=== PATIENT | female | born 2000 | race Caucasian/White ===

== ENCOUNTER 2021-07-13 15:00 | Emergency (ER) | payer SELFPAY ==
[2021-07-13] VITALS (13 sets, daily range): BP systolic 108–140; BP diastolic 86–100; PULSE 82–106; RESP 16–29; TEMP 36.6–36.9; O2SAT 95–98
--- NOTE | ~2021-07-13 | XR_ITS ---
XR chest 2V DATE: 07/13/2021 17:30 INDICATION: Chest pain and tightness for a few weeks. History of anxiety. TECHNIQUE: PA and lateral views COMPARISON: None FINDINGS: Normal heart size. No hilar or mediastinal enlargement. No pulmonary infiltrate or consolid ation, pleural effusion or pulmonary vascular congestion or pneumothorax. Included skeletal structures are unremarkable. IMPRESSION: Negative chest Reviewed, dictated and finalized at location A. IMPRESSION: Negative chest
[2021-07-13 15:32] LABS: Basophils Absolute Auto 0.1 K/mm3 (0.0-0.1); Basophils Percent Auto 0.6 % (0.2-1.2); Eosinophils Percent Auto 0.3 % (0-4.4); Hematocrit 45.9 % (37.0-47.0); Hemoglobin 14.7 g/dL (12.0-15.0); Immature Granulocyte Absolute 0.15 K/mm3 (0.00-0.031); Immature Granulocyte Percent A 1.1 % (0-0.5); Lymphocytes Absolute Auto 1.27 K/mm3 (0.9-3.2); Lymphocytes Percent Auto 9.2 % (18.3-44.2); Mean Corpuscular Hemoglobin 27.3 pg (26-34); Mean Corpuscular Volume 85.2 fl (80-100); Mean Platelet Volume 8.8 fl (7.4-10.4); Monocytes Absolute Auto 0.7 K/mm3 (0.1-0.6); Monocytes Percent Auto 5.1 % (2.6-8.5); Neutrophils Absolute Auto 11.6 K/mm3 (1.3-6.7); Neutrophils Percent Auto 83.7 % (45.5-73.1); Platelet Count Result 456 k/mm3 (150-375); Red Blood Count 5.39 M/mm3 (4.2-5.4); White Blood Count 13.8 K/mm3 (4.5-10.0)
--- NOTE | 2021-07-13 15:32 | ECG_ITS ---
Measurements Intervals [place] Rate: 94 P: 42 [place]: 138 QRS: -4 QRSD: 81 T: 35 QT: 328 QTc: 412 Interpretive Statements SINUS RHYTHM VOLTAGE CRITERIA FOR LVH BORDERLINE ECG Electronically Signed On 07-14-2021 8:13:53 CDT by Yousif Calvin D.O.
--- NOTE | 2021-07-13 15:33 | ED.ANXIETY ---
HPI - Anxiety General Chief Complaint: Anxiety Stated Complaint: anxious, recent loss Time Seen by Provider: 07/13/21 15:18 Source: patient and RN notes reviewed Mode of arrival: ambulatory Limitations: no limitations History of Present Illness HPI narrative: This is a 20 year old female who presents for evaluation of anxiety. Patient states her child a few weeks ago so she is having a hard time dealing with it. She reports constant chest pain for 2 weeks. She has made an appointment with lisha on July. She reports today she had a severe panic attack. She states she was sitting around thinking about every thing when her chest went crazy . She reports she was shaking all over. She denies fever chills, shortness of breath, nausea, vomiting. She denies leg swelling or calf pain. She was on medication for anxiety 6 months ago but she stopped because she felt like it was not working. She denies suicidal thoughts or ideations. She denies homicidal thoughts. Related Data Allergies Allergy/AdvReac Type Severity Reaction Status Date / Time No Known Allergies Allergy Verified 07/13/21 16:10 Review of Systems Review of Systems: All systems reviewed & are unremarkable except as noted in HPI and below PMFSH Past Medical History Medical History (Updated 07/13/21 @ 17:49 by Katerin Barbosa MD) Anxiety Social History Social History (Updated 07/13/21 @ 17:25 by Katerin Barbosa MD) Smoking packs per day: 1 Smoking cigarettes per day: 20.0 Smoking status: Current every day smoker Substance use type: marijuana Exam Const: General: no acute distress and alert Orientation/consciousness: patient oriented x3 HENMT: Head: normocephalic and atraumatic Face and sinus: face symmetric Eyes: EOM: EOMs intact bilaterally Chest: Chest palpation & inspection: tenderness Resp: Effort & Inspection: normal respiratory effort and no retractions Auscultation: clear to auscultation bilaterally Cardio: Rate: regular rate Rhythm: regular rhythm Heart sounds: no murmurs GI: GI Palp: Yes Soft to palpation, No Tenderness to palpation present (GI) and No Guarding due to palpation present (GI) Auscultation: normal bowel sounds : General: Yes no CVA tenderness Skin: General skin exam: normal color Rashes: no rashes Neuro: General: patient oriented x3, moves all extremities and CN's II-XI intact bilaterally Psych: Mental Status: mental status grossly normal Affect: normal affect Course Reevaluation(s) Reevaluation #1: I discussed with patient no acute findings except mildly elevated wbc. Date: 07/13/21 Time: 17:30 Vital Signs Vital signs: Vital Signs Temperature 98.5 F 07/13/21 15:05 Pulse Rate 106 H 07/13/21 15:05 Respiratory Rate 16 07/13/21 15:05 Blood Pressure 140/100 H 07/13/21 15:05 Pulse Oximetry 97 07/13/21 15:05 Temperature 98.5 F 07/13/21 15:05 Pulse Rate 86 07/13/21 18:00 Respiratory Rate 21 H 07/13/21 18:00 Blood Pressure 123/92 H 07/13/21 16:57 Pulse Oximetry 96 07/13/21 18:00 MDM - Anxiety Lab Data Attestation: I reviewed the patient's lab results. Result diagrams: 07/13/21 15:22 07/13/21 15:22 Labs: Lab Results 07/13/21 07/13/21 07/13/21 Range/Units 15:22 15:22 15:22 WBC 13.8 H (4.5-10.0) K/mm3 RBC 5.39 (4.2-5.4) M/mm3 Hgb 14.7 (12.0-15.0) g/dL Hct 45.9 (37.0-47.0) % MCV 85.2 (80-100) fl MCH 27.3 (26-34) pg MCHC 32.0 (32-36) g/dl RDW 14.0 (11.5-14.5) % Plt Count 456 H (150-375) k/mm3 MPV 8.8 (7.4-10.4) fl Immature Gran % (Auto) 1.1 H (0-0.5) % Neut % (Auto) 83.7 H (45.5-73.1) % Lymph % (Auto) 9.2 L (18.3-44.2) % Dixon % (Auto) 5.1 (2.6-8.5) % Eos % (Auto) 0.3 (0-4.4) % Baso % (Auto) 0.6 (0.2-1.2) % Lymph # (Auto) 1.27 (0.9-3.2) K/mm3 Dixon # (Auto) 0.7 H (0.1-0.6) K/mm3 Eos # (Auto) 0.0 (0-0.3) K/
[2021-07-13 15:45] LABS: Alanine Aminotransferase 50 U/L (4-35); Alkaline Phosphatase 127 U/L (38-126); Anion Gap 12 mmol/L (8-16); Aspartate Amino Transferase 39 U/L (14-36); Bilirubin,Total 0.3 mg/dL (0.2-1.3); Blood Urea Nitrogen 12 mg/dL (7-17); Calcium 10.2 mg/dL (8.4-10.2); Carbon Dioxide 22 mmol/L (22-30); Chloride 103 mmol/L (98-107); Estimated CRCL calculation 129 ml/min; Estimated Glomerular Filt Rate > 60; Glucose 124 mg/dL (65-110); Potassium 4.1 mmol/L (3.4-5.0); Sodium 137 mmol/L (137-145)
[2021-07-13 15:48] LABS: Ethanol < 10 mg/dL (<10)
[2021-07-13] MEDS: LORazepam (*CRX) 0.5 MG TABLET PO (15:49)
--- NOTE | 2021-07-13 15:53 | PC.NURSE ---
Called lab requesting lab add on for D-dimer, TSH, and baseline troponin.
[2021-07-13 16:17] LABS: Amphetamine Screen Urine Negative (Negative); Barbiturate Screen Urine Negative (Negative); Benzodiazepines Screen Urine Negative (Negative); Cannabinoid Screen Urine Positive (Negative); Cocaine Screen Urine Negative (Negative); Methadone Screen Urine Negative (Negative); Opiate Screen Urine Negative (Negative); Phencyclidine Screen Urine Negative (Negative)
[2021-07-13 16:26] LABS: Troponin I < 0.012 ng/mL (0.000-0.034)
[2021-07-13 16:43] LABS: Add Urine Microscopic? YES; Amorphous Sediment Urine Moderate; Appearance Urine Turbid (Clear); Bilirubin Urine Negative (Negative); Blood Urine 2+ (Negative); Color Urine Yellow (Yellow); Glucose Urine UA Negative (Negative); Ketones Urine Negative (Negative); Leukocyte Esterase Ur 1+ LEU/UL (Negative); Mucus Urine Moderate /lpf; Nitrate Urine Negative (Negative); Protein Urine 1+ mg/dL (Negative); RBC Urine 0-2 /hpf (0-2); Squamous Epithelial Cell Urine Occasional /hpf (Few); Urobilinogen Urine Negative mg/dL (<2.0)
[2021-07-13 17:02] LABS: D Dimer 0.17 ug/mL (<0.48)
[2021-07-13] MEDS: IBUPROFEN 400 MG TABLET 800 MG PO (18:03)
== END 2021-07-13 18:22 | disposition home or self-care (01) ==
PROVIDERS: Emergency Medicine; Emergency Provider General Practice
DX: F41.9 Anxiety disorder, unspecified (principal); D72.829 Elevated white blood cell count, unspecified; F17.210 Nicotine dependence, cigarettes, uncomplicated; R94.31 Abnormal electrocardiogram [ECG] [EKG]
CPT/HCPCS: 36415; 71046; 80053; 80307; 81001; 81025; 84443; 84484; 85025; 85380; 93005; 99284; A9270

== ENCOUNTER 2021-10-07 12:37 | Emergency (ER) | payer OTHER, SELFPAY ==
--- NOTE | 2021-10-07 12:41 | ED.HA ---
HPI - Headache General Chief Complaint: Skin/Abscess/Foreign Body Stated Complaint: Head aches Time Seen by Provider: 10/07/21 12:41 Source: patient and RN notes reviewed History of Present Illness HPI Narrative: Patient is a 21-year-old female who presents the urgent care with complaints of an extremely itchy scalp and recurrent hives to the scalp. Patient states that she is not recently made any changes to detergents, creams, lotions or shampoos. Patient states that she changes her shampoos frequently but nothing that she has not used in the past. Patient does report to taking trazodone as a new medication approximately 1 month ago. Patient states the symptoms started 2 to 3 weeks ago. Patient states that she cannot go without her trazodone due to her increased and anxiety and stress and the inability to sleep. Patient states that she has had multiple people check her scalp and they have not seen anything other than redness and hives . Patient states that her hair typically falls out when she is stressed but this seems to be more hair loss . No other acute complaints. Patient appears anxious but otherwise no acute distress noted. Patient aware of the plan of care. Some parts of this dictation were generated by voice recognition software and may contain typographical and/or grammatical inaccuracies. Related Data Home Medications Medication Instructions Recorded Confirmed alprazolam 0.25 mg PO DAILY 10/07/21 10/07/21 trazodone 100 mg PO HS 10/07/21 10/07/21 Allergies Allergy/AdvReac Type Severity Reaction Status Date / Time No Known Allergies Allergy Verified 10/07/21 13:08 Review of Systems Review of Systems: CONSTITUTIONAL: Denies fever, chills, or sweats. EYES: Denies visual changes, redness, or discharge. ENT: Denies rhinorrhea, congestion, sore throat, or otalgia. CARDIOVASCULAR: Denies chest pain, palpitations, or edema. RESPIRATORY: Denies cough or dyspnea. GASTROINTESTINAL: Denies abdominal pain, nausea, vomiting, or diarrhea. GENITOURINARY: Denies dysuria or hematuria. SKIN: Reports of itchy red scalp MUSCULOSKELETAL: Denies back pain, joint pain, or myalgia. NEUROLOGIC: Denies headache, numbness, or weakness. All other systems reviewed are negative, except as documented in HPI. [facility] Past Medical History Medical History (Updated 10/07/21 @ 13:12 by NEHA Johnson) Anxiety Social History Social History (Updated 07/13/21 @ 17:25 by Katerin Barbosa MD) Smoking packs per day: 1 Smoking cigarettes per day: 20.0 Smoking status: Current every day smoker Substance use type: marijuana Comments At the time of my signature, I reviewed and agree with the nursing past medical, surgical, social, and family history. There is no relevant family history pertinent to the patient complaint. Exam Narrative: GENERAL: This is a well-nourished, well-developed patient, in no apparent distress. HEAD: normocephalic, atraumatic. EYES: PERRL. Sclera clear/white. Vision is grossly intact. EARS: External ears normal NOSE: External nose normal with no obvious nasal discharge, nares without redness, no rhinorrhea. THROAT: Mucous membranes moist NECK: Neck supple CARDIOVASCULAR: Regular rate and rhythm without murmurs, gallops, or rubs. RESPIRATORY: Clear to auscultation. Breath sounds equal bilaterally. No wheezes, rales, or rhonchi. SKIN: No notable nits/lice seen in the scalp. No urticaria noted to the scalp. No evidence of fungal infection to the scalp. Very mild erythema to the top of the scalp. Notable thinning hairline to the center of the scalp. NEURO: awake, alert, and oriented to person, place and time. There were no obvious focal neurologic abnormalities. EXTREMITIES: No clubbing, cyanosis, or edema. Course Vital Signs Vital signs: Vital Signs Temperature 99.9 F H 10/07/21 12:44 Pulse Rate 85 10/07/21 12:44 Respiratory Rate 20 10/07/21 12:44 Blood Pressure 151/65 H
[2021-10-07 12:44] VITALS: BP 151/65; PULSE 85; RESP 20; TEMP 37.7; O2SAT 99
== END 2021-10-07 13:15 | disposition home or self-care (01) ==
PROVIDERS: Emergency Provider Nurse Practitioner Family
DX: L65.9 Nonscarring hair loss, unspecified (principal); F17.210 Nicotine dependence, cigarettes, uncomplicated; F41.9 Anxiety disorder, unspecified
CPT/HCPCS: 99211; G0463

== ENCOUNTER 2023-06-07 21:43 | Emergency (ER) | payer OTHER, SELFPAY ==
--- NOTE | ~2023-06-07 | CT_ITS ---
EXAMINATION: CT abdomen pelvis w con DATE: 06/08/2023 00:56 INDICATION: Lower abdominal pain, nausea, vomiting. TECHNIQUE: Computed tomography (CT) of the abdomen and pelvis was performed with 100 cc Omnipaque 350 intravenous contrast. The dose-length product was 1070.19 mGy-cm. Automated exposure control and ite rative reconstruction technique were employed. COMPARISON: None. FINDINGS: Lung bases are unremarkable. Heart size normal. No significant pleural or pericardial effus ion. There are appendicoliths. No secondary findings to suggest acute appendicitis. Follicular change s in the ovaries. IUD present in the uterus. Small fat-containing umbilical hernia. The liver, spleen, pancreas, adrenal glands and kidneys are unremarkable. Nonobstructive bowel gas pa ttern. There are a few segments of mildly thickened small bowel which may be due to normal contractil ity, although nonspecific enteritis not excluded. No free air. No abnormal pelvic masses or fluid col lections. No lymphadenopathy. Gallbladder is present. IMPRESSION: 1. Mild segmental thickening of small bowel loops in the upper abdomen which may be due to normal con tractility or nonspecific enteritis. Reviewed, dictated and finalized at location A. IMPRESSION: 1. Mild segmental thickening of small bowel loops in the upper abdomen which ma y be due to normal contractility or nonspecific enteritis.
--- NOTE | ~2023-06-07 | XR_ITS ---
EXAMINATION: XR chest 2V 06/08/2023 01:06 INDICATION: Cough and congestion PROCEDURE: 2 view chest COMPARISON: 07/13/2021 FINDINGS: The lungs are clear. The cardiomediastinal silhouette is within normal limits. There are no pleural effusions. There is no pneumothorax suspected. IMPRESSION: 1: NO ACUTE CARDIOPULMONARY DISEASE. Reviewed, dictated and finalized at location A.
[2023-06-07 21:46] VITALS: BP 160/102; PULSE 95; RESP 16; TEMP 36.5; O2SAT 100
[2023-06-07 23:31] LABS: Basophils Absolute Auto 0.1 K/mm3 (0.0-0.1); Basophils Percent Auto 0.6 % (0.2-1.2); Eosinophils Absolute Auto 0.3 K/mm3 (0-0.3); Hematocrit 42.4 % (37.0-47.0); Hemoglobin 13.6 g/dL (12.0-15.0); Immature Granulocyte Percent A 0.8 % (0-0.5); Lymphocytes Absolute Auto 3.34 K/mm3 (0.9-3.2); Lymphocytes Percent Auto 26.4 % (18.3-44.2); Mean Corpuscular HGB Conc 32.1 g/dl (32-36); Mean Corpuscular Hemoglobin 28.4 pg (26-34); Mean Corpuscular Volume 88.5 fl (80-100); Mean Platelet Volume 8.7 fl (7.4-10.4); Monocytes Absolute Auto 1.1 K/mm3 (0.1-0.6); Monocytes Percent Auto 8.6 % (2.6-8.5); Neutrophils Absolute Auto 7.8 K/mm3 (1.3-6.7); Neutrophils Percent Auto 61.6 % (45.5-73.1); Platelet Count Result 351 k/mm3 (150-375); Red Blood Count 4.79 M/mm3 (4.2-5.4); Red Cell Distribution Width 13.2 % (11.5-14.5); White Blood Count 12.7 K/mm3 (4.5-10.0)
[2023-06-07 23:57] LABS: Alanine Aminotransferase 43 U/L (6-35); Albumin Level 4.3 g/dL (3.5-5.1); Alkaline Phosphatase 111 U/L (38-126); Anion Gap 6 mmol/L (8-16); Aspartate Amino Transferase 33 U/L (14-36); Bilirubin,Total 0.2 mg/dL (0.2-1.3); Blood Urea Nitrogen 12 mg/dL (7-17); Calcium 9.3 mg/dL (8.4-10.2); Carbon Dioxide 28 mmol/L (22-30); Chloride 105 mmol/L (98-107); Estimated CRCL calculation 160 ml/min; Estimated Glomerular Filt Rate > 60; Glucose 89 mg/dL (65-110); Lipase 106 U/L (23-300); Potassium 3.8 mmol/L (3.4-5.0); Sodium 139 mmol/L (137-145)
[2023-06-08 00:13] LABS: Influenza A QL RT-PCR Negative (Negative); Influenza B QL RT-PCR Negative (Negative); SARS-CoV-2 RNA PCR Negative (Negative)
[2023-06-08 00:36] LABS: Appearance Urine Clear (Clear); Bacteria Urine None Seen /hpf; Bilirubin Urine Negative (Negative); Blood Urine Negative (Negative); Color Urine Yellow (Yellow); Glucose Urine UA Negative (Negative); Ketones Urine Negative (Negative); Leukocyte Esterase Ur 1+ LEU/UL (Negative); Nitrate Urine Negative (Negative); Non Pathogenic Casts 0-2; Protein Urine Negative (Negative); RBC Urine 0-2 /hpf (0-2); Specific Grav Ur 1.013 (1.001-1.035); Squamous Epithelial Cell Urine None seen /hpf (Few); Urobilinogen Urine 0.2 mg/dL (<2.0)
[2023-06-08 00:42] LABS: Add Urine Microscopic? YES
[2023-06-08] MEDS: SODIUM CHLORIDE 0.9% IV 1,000 ML 999 ML IV CONT (00:42)
[2023-06-08] MEDS: PANTOPRAZOLE SODIUM IV 40 MG VIAL IV PUSH (00:42)
--- NOTE | 2023-06-08 00:42 | ED.NAVMDI ---
HPI - Nausea/Vomiting/Diarrhea General Chief complaint: Nausea/Vomiting/Diarrhea Stated complaint: i just feel sick abd pain/diarrhea Time Seen by Provider: 06/07/23 22:22 Source: patient Mode of arrival: ambulatory Limitations: no limitations History of Present Illness HPI Narrative: Patient is a 22-year-old female who presents ED with multiple complaints. Patient reports she began feeling unwell on night with fatigue and malaise. She developed a dry cough, congestion, sore throat on Thursday. She also reported having nausea and vomiting that day, which has since persisted throughout the weekend. She developed abdominal cramping today with diarrhea, which prompted her presentation. Patient has not tried anything for her symptoms. She notes she has missed several days of work d/t her sx's. She denies any current abdominal pain. Denies any chest pain or difficulty breathing. Denies documented fever. Denies rectal bleeding or melena. Denies urinary symptoms. Related Data Home Medications Medication Instructions Recorded Confirmed alprazolam 0.25 mg tablet 0.25 mg PO BID PRN Anxiety 10/07/21 10/07/21 trazodone 100 mg tablet 100 mg PO HS 10/07/21 10/07/21 Allergies Allergy/AdvReac Type Severity Reaction Status Date / Time No Known Allergies Allergy Verified 06/07/23 21:44 Review of Systems Review of Systems: CONSTITUTIONAL: Denies fever, chills, or sweats. ENT: See HPI. CARDIOVASCULAR: Denies chest pain. RESPIRATORY: See HPI. GASTROINTESTINAL: See HPI. GENITOURINARY: Denies dysuria or hematuria. NEUROLOGIC: See HPI. All systems reviewed & are unremarkable except as noted in HPI and below [facility] Past Medical History Medical History Anxiety Social History Social History Smoking packs per day: 1 Smoking cigarettes per day: 20.0 Smoking status: Current every day smoker Substance use type: marijuana Exam Narrative: GENERAL: Well appearing, obese with BMI of 30.7, non-toxic, in no acute distress. HEAD: Normocephalic, atraumatic. ENT: MMs moist. No significant posterior pharynx erythema. No tonsillar hypertrophy or exudate. Uvula midline. NECK: Supple. No adenopathy, no masses. RESPIRATORY: Airway patent, respirations nonlabored. Clear to auscultation bilaterally, no rales, rhonchi, wheezing. No focal lung sounds. CARDIOVASCULAR: Regular rate and rhythm without murmurs, rubs, or gallops. Peripheral pulses 2+ and equal bilaterally. ABDOMINAL: Soft, minimal tenderness to left lower abdomen, no rebound, nondistended, no hepatosplenomegaly. Normoactive BS. MUSCULOSKELETAL: Moves all extremities. Strength/ROM intact without gross deformities. SKIN: Warm, dry, normal color. No rashes. NEURO: A&O X3. Speech clear. Cranial nerves II-XII grossly intact. Steady gait. No ataxic movements. PSYCHIATRIC: Appropriate mood and affect. Normal interaction. Course Vital Signs Vital signs: Vital Signs Temperature 97.7 F 06/07/23 21:46 Pulse Rate 95 06/07/23 21:46 Respiratory Rate 16 06/07/23 21:46 Blood Pressure 160/102 H 06/07/23 21:46 Pulse Oximetry 100 06/07/23 21:46 Oxygen Delivery Room Air 06/07/23 21:46 Temperature 97.7 F 06/07/23 21:46 Pulse Rate 95 06/07/23 21:46 Respiratory Rate 16 06/07/23 21:46 Blood Pressure 160/102 H 06/07/23 21:46 Pulse Oximetry 100 06/07/23 21:46 Oxygen Delivery Room Air 06/07/23 21:46 MDM - Nausea/Vomiting/Diarrhea MDM Narrative Medical decision making narrative: Patient presented to ED with multiple complaints, URI symptoms, N/V/D. Vitals stable upon arrival. Exam unremarkable. Patient without current abdominal pain. CBC with leukocytosis of 12.7. CMP without significant abnormalities. Stable electrolytes. Stable kidney function. Normal LFTs and lipase. Urinalysis with 1+ leuk esterase, 6-
[2023-06-08] MEDS: ONDANSETRON INJ 4 MG/2 ML VIAL IV PUSH (00:43)
== END 2023-06-08 02:40 | disposition home or self-care (01) ==
PROVIDERS: Emergency Provider Physician Assistant
DX: K52.9 Noninfective gastroenteritis and colitis, unspecified (principal); N39.0 Urinary tract infection, site not specified; F41.9 Anxiety disorder, unspecified; F17.210 Nicotine dependence, cigarettes, uncomplicated
CPT/HCPCS: 36415; 71046; 74177; 80053; 81001; 81025; 83690; 85025; 87086; 87088; 87636; 96361; 96374; 96375; 99284; C9113; J2405; J7030; Q9967

== ENCOUNTER 2023-08-24 09:56 | Emergency (ER) | payer OTHER, SELFPAY ==
[2023-08-24 10:18] VITALS: BP 129/82; PULSE 72; RESP 18; TEMP 36.6; O2SAT 100
--- NOTE | 2023-08-24 10:41 | ED.URI ---
HPI - URI/Sore Throat General Chief Complaint: Upper Respiratory Infection Stated Complaint: cough,irritated throat, skin irritation Time Seen by Provider: 08/24/23 10:41 Source: patient and RN notes reviewed Mode of arrival: ambulatory Limitations: no limitations History of Present Illness HPI Narrative: 23-year-old female presents with concern for 6 day history nasal congestion, rhinorrhea, sore throat, cough. She reports her face feels flushed. She reports she has some vomiting over the weekend. She reports feeling clammy and sweaty MD elicited complaint: cough Related Data Allergies Allergy/AdvReac Type Severity Reaction Status Date / Time No Known Allergies Allergy Verified 06/07/23 21:44 Review of Systems Review of Systems: CONSTITUTIONAL: Reports malaise, chills, sweats EYES: Denies visual changes, redness, or discharge. ENT: Reports rhinorrhea, congestion, and sore throat. CARDIOVASCULAR: Denies chest pain, palpitations, or edema. RESPIRATORY: Reports cough. Denies dyspnea. GASTROINTESTINAL: Denies abdominal pain, nausea, vomiting, diarrhea SKIN: Denies rash or itching. MUSCULOSKELETAL: Denies myalgia. NEUROLOGIC: Denies headache. All systems reviewed & are unremarkable except as noted in HPI and below PMFSH Past Medical History Medical History Anxiety Social History Social History Smoking packs per day: 1 Smoking cigarettes per day: 20.0 Smoking status: Current every day smoker Substance use type: marijuana Comments At time of signature, agree with nursing past medical, surgical, social and family history. There is no relevant family history pertinent to the presenting complaint Exam Narrative: GENERAL: Well-appearing, well-nourished, and in no acute distress. HEAD: Normocephalic EYES: PERRLA, conjunctivae clear ENT: Nares clear, turbinates edematous and erythematous, clear discharge. Mucous membranes moist. TM pearly alvarado with dull light reflex bilaterally; no tragal tenderness. Oropharynx not erythematous without lesions. Tonsils not enlarged and without exudate, no drooling, no hoarseness, no trismus, uvula midline. NECK: Supple. No lymphadenopathy CHEST: Clear to auscultation, breath sounds equal. No wheezing, rhonchi, rales, or stridor. No respiratory distress, speaks in full sentences. HEART: Regular rate and rhythm. No murmur heard. SKIN: Warm, dry, no rash. NEURO: Alert and oriented x3. PSYCH: Normal mood and affect Course Course Emergency Course: Patient is aware of diagnosis, understands and agrees to treatment plan. Anticipatory guidance given. Patient agrees to follow-up as directed and is aware of reasons to seek care at the emergency department. Portions of this record may have been created with voice recognition software Level of Care: Express Care Visit Vital Signs Vital signs: Vital Signs Temperature 97.8 F 08/24/23 10:18 Pulse Rate 72 08/24/23 10:18 Respiratory Rate 18 08/24/23 10:18 Blood Pressure 129/82 08/24/23 10:18 Pulse Oximetry 100 08/24/23 10:18 Oxygen Delivery Room Air 08/24/23 10:18 Temperature 97.8 F 08/24/23 10:18 Pulse Rate 72 08/24/23 10:18 Respiratory Rate 18 08/24/23 10:18 Blood Pressure 129/82 08/24/23 10:18 Pulse Oximetry 100 08/24/23 10:18 Oxygen Delivery Room Air 08/24/23 10:18 Reviewed. MDM - URI/Sore Throat MDM Narrative Medical decision making narrative: Differential diagnosis considered: Crews virus, strep pharyngitis, allergic rhinitis, upper respiratory tract infection, sinusitis, rhinosinusitis, nasopharyngitis. viral pharyngitis, otitis media, otitis externa, pneumonia, bronchitis, viral cough syndrome, viral syndrome, and influenza. Exam findings show no acute concerns or changes; patient is non-toxic appearing and is in no distress. Patient is appropriate for
== END 2023-08-24 10:53 | disposition home or self-care (01) ==
PROVIDERS: Emergency Provider Nurse Practitioner
DX: J40 Bronchitis, not specified as acute or chronic (principal); F17.210 Nicotine dependence, cigarettes, uncomplicated
CPT/HCPCS: 99213; G0463

== ENCOUNTER 2023-10-24 10:16 | Emergency (ER) | payer OTHER, SELFPAY ==
--- NOTE | 2023-10-24 10:20 | ED.URI ---
HPI - URI/Sore Throat General Chief Complaint: Upper Respiratory Infection Stated Complaint: Sinus Time Seen by Provider: 10/24/23 10:30 Source: patient Mode of arrival: ambulatory Limitations: no limitations History of Present Illness HPI Narrative: Lori is a 23-year-old female patient presenting to the clinic today with complaints of runny nose, cough, and left-sided sore throat and left ear pain. She reports these symptoms have been going on for approximately 10 days. She reports some yellow nasal drainage. No known fever or chills MD elicited complaint: sore throat, nasal congestion and sinus pain Related Data Allergies Allergy/AdvReac Type Severity Reaction Status Date / Time No Known Allergies Allergy Verified 06/07/23 21:44 Review of Systems Review of Systems: Pertinent positives per HPI. Patient denies any fever, chills, rash, headache, visual changes, dizziness, shortness of breath, chest pain, palpitations, nausea, vomiting, diarrhea, constipation, abdominal pain, or any urinary issues. [facility] Past Medical History Medical History Anxiety Social History Social History Smoking packs per day: 1 Smoking cigarettes per day: 20.0 Smoking status: Current every day smoker Substance use type: marijuana Comments At the time of my signature, I reviewed and agree with the nursing past medical, surgical, social, and family history. There is no relevant family history pertinent to the patient complaint. Exam Narrative: General: Well-developed, well nourished, in no apparent distress Head: Normocephalic, atraumatic Eyes: Pupils equally round and reactive to light bilaterally, EOM intact, sclera and conjunctive clear, no discharge, lids normal Ears: TMs intact and clear, ear canals clear, no drainage, grossly hearing normal. Nose: Nares patent, yellow nasal discharge, moderate inflammation, maxillary sinus tenderness. Mouth: Oral pharynx red with enlarged left tonsil with exudate without lesions or masses, good dentition, MMM. Neck: Supple, trachea midline, enlargement of left anterior cervical nodes, no thyroid masses or goiter palpable. Cardio: Regular rate and rhythm, s1 and s2 normal, no murmur appreciated. Resp: Clear to auscultation bilaterally, no rhonchi, rales, wheezing or rubs Course Course Emergency Course: Portions of this record may have been created with voice recognition software. Level of Care: Express Care Visit Vital Signs Vital signs: Vital signs reviewed MDM - URI/Sore Throat MDM Narrative Medical decision making narrative: At the time of visit patient is resting comfortably on the exam table. Strep test was negative. Patient is nontoxic. I suspect patient has acute tonsillitis with bacterial rhinosinusitis. Prescription for Augmentin and prednisone was sent to pharmacy and supportive measures were discussed with the patient and she voiced understanding of the discharge instructions and agrees to treatment plan. Differential Diagnosis Differential diagnosis: Likely upper respiratory infection, otitis media, sinusitis, viral infection, bronchitis, influenza, pharyngitis and other (COVID) Discharge Plan Discharge Clinical Impression: Acute bacterial tonsillitis, Acute bacterial rhinosinusitis Patient Disposition: Home, Self-Care Condition: Stable Instructions: Antibiotic Form, Rhinosinusitis (ED), Tonsillitis (ED) Additional Instructions: Strep test was negative in the clinic today. Take prescription medications only as prescribed-Augmentin and prednisone Increase fluids and stay well hydrated Tylenol/motrin for pain/fever Flonase and OTC antihistamines as directed Vicks vapor rub to open sinuses Sinus rinses for congestion Cepacol spray, cough drops, throat lozenges, warm tea with honey/lemon, gargle salt water to soothe throa
[2023-10-24 10:27] VITALS: BP 138/98; PULSE 76; RESP 16; TEMP 37.1; O2SAT 98
== END 2023-10-24 10:45 | disposition home or self-care (01) ==
PROVIDERS: Emergency Provider Nurse Practitioner Family
DX: J03.80 Acute tonsillitis due to other specified organisms (principal); B96.89 Other specified bacterial agents as the cause of diseases classified elsewhere; J01.90 Acute sinusitis, unspecified; F17.210 Nicotine dependence, cigarettes, uncomplicated
CPT/HCPCS: 87081; 87880; 99213; G0463

== ENCOUNTER 2023-12-14 12:16 | Emergency (ER) | payer OTHER, SELFPAY ==
[2023-12-14 12:27] VITALS: BP 152/93; PULSE 82; RESP 16; TEMP 37.3; O2SAT 98
--- NOTE | 2023-12-14 12:55 | ED.URI ---
HPI - URI/Sore Throat General Chief Complaint: Upper Respiratory Infection Stated Complaint: Sinus Time Seen by Provider: 12/14/23 12:47 Source: patient and RN notes reviewed Mode of arrival: ambulatory Limitations: no limitations History of Present Illness HPI Narrative: Patient presents today with a 4 to five-day history of cough, sore throat, nasal congestion, headache, nausea vomiting. Last episode of vomiting was this morning. She has been able to keep down fluids since that episode. States she is currently pain-free. She has been taking ibuprofen and NyQuil without much relief. Son was diagnosed with strep throat last week Related Data Home Medications Medication Instructions Recorded Confirmed ergocalciferol (vitamin D2) 1,250 1,250 mcg DIRECTED 12/14/23 12/14/23 mcg (50,000 unit) capsule Allergies Allergy/AdvReac Type Severity Reaction Status Date / Time No Known Allergies Allergy Verified 06/07/23 21:44 Review of Systems Review of Systems: CONSTITUTIONAL: Denies body aches, fever, chills, or sweats. EYES: Denies visual changes, redness, or discharge. ENT: Denies rhinorrhea, or otalgia.+ congestion, sore throat CARDIOVASCULAR: Denies chest pain, palpitations, or edema. RESPIRATORY: Denies dyspnea.+ cough GASTROINTESTINAL: Denies abdominal pain, or diarrhea.+ nausea, vomiting GENITOURINARY: Denies dysuria or hematuria. SKIN: Denies rash, itching, or wounds. MUSCULOSKELETAL: Denies back pain, joint pain, or myalgia. NEUROLOGIC: Denies numbness, tingling, or weakness.+ headache PSYCH: Denies depression or anxiety. PMFSH Past Medical History Medical History Anxiety Social History Social History Smoking packs per day: 1 Smoking cigarettes per day: 20.0 Smoking status: Current every day smoker Substance use type: marijuana Comments At time of signature, I have reviewed and agree with nursing past medical, surgical, social and family history unless otherwise noted. Please see nursing chart for further information. There is no relevant family history pertinent to the presenting complaint Exam Narrative: GENERAL: Mildly ill-appearing, well-nourished, and in no acute distress. HEAD: Normocephalic, atraumatic. EYES: EOMI. No redness or drainage. Conjunctivae normal. ENT: Mucous membranes pink and moist. Nares congested. No rhinorrhea. TMs normal bilaterally. Throat normal. Uvula midline. NECK: Normal AROM. Supple. No lymphadenopathy. CHEST: No respiratory distress. Clear to auscultation. HEART: Regular rate and rhythm. No murmur appreciated. EXTREMITIES: Normal range of motion. No edema. SKIN: Warm, dry, no rash. Capillary refill normal. Normal skin turgor. NEURO: No focal deficits. Alert and oriented x3. Gait steady. PSYCH: Normal affect. No signs of depression or anxiety. Course Course Level of Care: Express Care Visit Vital Signs Vital signs: Vital Signs Temperature 99.2 F 12/14/23 12:27 Pulse Rate 82 12/14/23 12:27 Respiratory Rate 16 12/14/23 12:27 Blood Pressure 152/93 H 12/14/23 12:27 Pulse Oximetry 98 12/14/23 12:27 Oxygen Delivery Room Air 12/14/23 12:27 Temperature 99.2 F 12/14/23 12:27 Pulse Rate 82 12/14/23 12:27 Respiratory Rate 16 12/14/23 12:27 Blood Pressure 152/93 H 12/14/23 12:27 Pulse Oximetry 98 12/14/23 12:27 Oxygen Delivery Room Air 12/14/23 12:27 Reviewed MDM - URI/Sore Throat MDM Narrative Medical decision making narrative: Rapid strep negative. Culture pending. Symptoms likely viral in etiology. Patient declines prescription for Zofran. Anticipatory guidance given. Differential Diagnosis Differential diagnosis: Likely upper respiratory infection, sinusitis, viral infection, pharyngitis and other (Strep throat, gastroenteritis) Lab Data Attestation: I review
== END 2023-12-14 13:02 | disposition home or self-care (01) ==
PROVIDERS: Emergency Provider Nurse Practitioner
DX: J02.0 Streptococcal pharyngitis (principal); F17.210 Nicotine dependence, cigarettes, uncomplicated
CPT/HCPCS: 87081; 87880; 99213; G0463

== ENCOUNTER 2024-05-08 13:58 | Emergency (ER) | payer OTHER, SELFPAY ==
--- NOTE | ~2024-05-08 | CT_ITS ---
EXAMINATION: CT abdomen pelvis w con DATE: 05/08/2024 17:19 INDICATION: Lower abdominal pain. TECHNIQUE: Computed tomography (CT) of the abdomen and pelvis was performed with 100 mL Omnipaque 350 intravenous contrast. Automated exposure control and iterative reconstruction technique were employe d. The dose-length product was 889.61 mGy-cm. COMPARISON: CT abdomen and pelvis 06/08/2023 FINDINGS: The visualized portions of lung bases are clear without pneumonia or pleural effusion. The heart size is normal. No pericardial effusion. The liver, gallbladder, spleen, pancreas, adrenal glan ds, and kidneys are normal. There is an intrauterine device in expected position. There are no dilate d loops of bowel. The appendix is normal. There are no pathologically enlarged lymph nodes. There is physiologic fluid in the pelvis. There is a dominant follicle in left ovary measuring 2.7 cm. There i s mild lumbar spondylosis. IMPRESSION: 1. No specific etiology for the patient's symptoms. Reviewed, dictated and finalized at location E.
[2024-05-08 14:02] VITALS: BP 144/102; PULSE 108; RESP 16; TEMP 36.8; O2SAT 100
--- NOTE | 2024-05-08 15:09 | PC.NURSE ---
Addendum entered by Hillary Schuler RN 05/08/24 15:22: pt reports iud in place since 2019. patient states that she is unable to feel the strings. patient states that she feels like her body is trying to push something out and feels like need to bear down. 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 patient reports sudden onset sharp stabbing pain in lower mid abdomen. patient states that she was feeling around and definitely feels something along the wall of vagina Original Note: pt reports iud in place since 2019. patient states that she is unable to feel the strings. patient states that she feels like her body is trying to push something out and feels like need to bear down. 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 patient reports sudden onset sharp stabbing pain in lower mid abdomen.
[2024-05-08 15:21] VITALS: BP 147/96; PULSE 84; RESP 18; O2SAT 98
[2024-05-08 15:28] LABS: Basophils Absolute Auto 0.1 K/mm3 (0.0-0.1); Basophils Percent Auto 0.7 % (0.2-1.2); Eosinophils Absolute Auto 0.1 K/mm3 (0-0.3); Eosinophils Percent Auto 1.5 % (0-4.4); Immature Granulocyte Absolute 0.08 K/mm3 (0.00-0.031); Immature Granulocyte Percent A 0.8 % (0-0.5); Lymphocytes Absolute Auto 2.12 K/mm3 (0.9-3.2); Lymphocytes Percent Auto 22.5 % (18.3-44.2); Mean Corpuscular HGB Conc 31.1 g/dl (32-36); Mean Corpuscular Hemoglobin 27.5 pg (26-34); Mean Corpuscular Volume 88.2 fl (80-100); Mean Platelet Volume 8.6 fl (7.4-10.4); Monocytes Absolute Auto 0.7 K/mm3 (0.1-0.6); Monocytes Percent Auto 7.3 % (2.6-8.5); Neutrophils Absolute Auto 6.3 K/mm3 (1.3-6.7); Neutrophils Percent Auto 67.2 % (45.5-73.1); Platelet Count Result 407 k/mm3 (150-375); White Blood Count 9.4 K/mm3 (4.5-10.0)
[2024-05-08 15:34] LABS: Appearance Urine Cloudy (Clear); Bacteria Urine None Seen /hpf; Bilirubin Urine Negative (Negative); Blood Urine Negative (Negative); Color Urine Yellow (Yellow); Glucose Urine UA Negative (Negative); Ketones Urine Negative (Negative); Leukocyte Esterase Ur Negative LEU/UL (Negative); Nitrate Urine Negative (Negative); Non Pathogenic Casts 0-2; Protein Urine Negative (Negative); Specific Grav Ur 1.021 (1.001-1.035); Squamous Epithelial Cell Urine None Seen /hpf (Few); Urobilinogen Urine 0.2 mg/dL (<2.0); WBC Urine 0-5 /hpf (0-3); pH Urine 7.5 (5.0-9.0)
[2024-05-08 15:39] LABS: Alanine Aminotransferase 65 U/L (6-35); Albumin Level 4.6 g/dL (3.5-5.1); Alkaline Phosphatase 91 U/L (38-126); Anion Gap 7 mmol/L (4-12); Aspartate Amino Transferase 30 U/L (14-36); Bilirubin,Total 0.5 mg/dL (0.2-1.3); Blood Urea Nitrogen 11 mg/dL (7-17); Calcium 9.7 mg/dL (8.4-10.2); Carbon Dioxide 26 mmol/L (22-30); Chloride 108 mmol/L (98-107); Estimated CRCL calculation 106 ml/min; Estimated Glomerular Filt Rate > 60; Glucose 85 mg/dL (65-110); Lipase 72 U/L (23-300); Potassium 3.9 mmol/L (3.4-5.0); Sodium 141 mmol/L (137-145)
[2024-05-08 15:46] LABS: Add Urine Microscopic? YES
--- NOTE | 2024-05-08 16:05 | ED.ABDPAIN ---
HPI - Abdominal Pain General Chief Complaint: Abdominal Pain Stated Complaint: severe abd pain Time Seen by Provider: 05/08/24 14:56 History of Present Illness HPI narrative: 23-year-old female presenting to the emergency department for evaluation for lower abdominal pain. Patient reports prior to arrival she had onset of lower abdominal pain. Patient states when she was attempting to provide a urine sample she had to bear down and she felt that something was dislodged with her vagina, patient reports she felt like she is trying to push something out. Patient is sexually active with 1 partner denies any concern for STIs. Patient does have prior history of urinary tract infection states that does not feel typical for urinary tract infection. Related Data Home Medications Medication Instructions Recorded Confirmed ergocalciferol (vitamin D2) 1,250 1,250 mcg DIRECTED 12/14/23 12/14/23 mcg (50,000 unit) capsule Allergies Allergy/AdvReac Type Severity Reaction Status Date / Time No Known Allergies Allergy Verified 05/08/24 14:01 Review of Systems Review of Systems: All systems reviewed & are unremarkable except as noted in HPI and below PMFSH Past Medical History Medical History Anxiety Social History Social History Smoking packs per day: 1 Smoking cigarettes per day: 20.0 Smoking status: Current every day smoker Substance use type: marijuana Exam Narrative: APPEARANCE: Well appearing, no pain, no distress, well-nourished. HEAD: normocephalic, atraumatic. EYES: PERRLA/EOMI, conjunctivae clear. NOSE: Normal no drainage EARS:TMS clear with good light reflex. THROAT: Pharynx clear, no exudate. NECK: Supple. No adenopathy, no masses. RESPIRATORY: Airway patent, respirations nonlabored. Clear to auscultation bilaterally, no rales, rhonchi, wheezing. CARDIOVASCULAR: Regular rate and rhythm without murmurs rubs or gallops. ABDOMINAL: Soft, nontender, nondistended, normal bowel sounds Pelvic: Friable cervix with discharge from cervix MUSCULOSKELETAL: Moves all extremities. Strength/ROM intact, No edema, No calf tenderness. NEURO: Alert. Cranial nerves II through XII intact. Grossly intact SKIN: Warm, dry. Normal Color Course Vital Signs Vital signs: Vital Signs Temperature 98.2 F 05/08/24 14:02 Pulse Rate 108 H 05/08/24 14:02 Respiratory Rate 16 05/08/24 14:02 Blood Pressure 144/102 H 05/08/24 14:02 Pulse Oximetry 100 05/08/24 14:02 Temperature 98.2 F 05/08/24 14:02 Pulse Rate 84 05/08/24 15:21 Respiratory Rate 18 05/08/24 15:21 Blood Pressure 147/96 H 05/08/24 15:21 Pulse Oximetry 98 05/08/24 15:21 MDM - Abdominal Pain MDM Narrative Medical decision making narrative: 23-year-old female presented emergency department for evaluation of lower abdominal pain. He CT scan was negative. Patient is afebrile with no leukocytosis and a stable hemoglobin. No significant abnormalities on the CMP UA shows no evidence of infection. Patient was positive for chlamydia. Patient was started on antibiotic emergency department. Patient was updated the results of her labs. Patient was advised to refrain from sexual activity until both her partner are fully treated. All questions concerns were addressed. Differential Diagnosis Differential diagnosis: Likely abdominal pain, acute appendicitis, constipation, diverticulitis, endometriosis, gastroenteritis, pancreatitis and small bowel obstruction Lab Data Attestation: I reviewed the patient's lab results. 05/08/24 15:08 05/08/24 15:08 Labs: Lab Results 05/08/24 05/08/24 Range/Units 15:08 16:12 WBC 9.4 (4.5-10.0) K/mm3 RBC 5.10 (4.2-5.4) M/mm3 Hgb 14.0 (12.0-15.0) g/dL Hct 45.0 (37.0-47.0) % MCV 88.2 (80-100) fl MCH 27.5 (26-34) pg MCH
[2024-05-08 17:21] LABS: Trichomonas Vag PCR NOT DETECTED (NOT DETECTE)
[2024-05-08 17:46] LABS: Chlamydia trachomatis DETECTED (NOT DETECTE); Neisseria gonorrhoeae PCR NOT DETECTED (NOT DETECTE)
[2024-05-08] MEDS: DOXYCYCLINE HYCLATE 100 MG TABLET PO (18:28)
[2024-05-08 18:32] VITALS: BP 151/72; PULSE 87; RESP 18; TEMP 36.6; O2SAT 100
== END 2024-05-08 18:34 | disposition home or self-care (01) ==
PROVIDERS: Emergency Provider Emergency Medicine
DX: A56.8 Sexually transmitted chlamydial infection of other sites (principal); F17.210 Nicotine dependence, cigarettes, uncomplicated; Z97.5 Presence of (intrauterine) contraceptive device
CPT/HCPCS: 36415; 74177; 80053; 81001; 81025; 83690; 85025; 87070; 87491; 87591; 87661; 99284; A9270; Q9967

== ENCOUNTER 2024-05-16 16:01 | Emergency (ER) | payer OTHER, SELFPAY ==
[2024-05-16 16:11] VITALS: BP 149/88; PULSE 88; RESP 16; TEMP 37.4; O2SAT 100
--- NOTE | 2024-05-16 16:22 | ED.BACK ---
HPI - Back Pain/Injury General Chief Complaint: Back Pain/Injury Stated Complaint: Back Pain Source: patient Mode of arrival: ambulatory Limitations: no limitations History of Present Illness HPI Narrative: 23 y/o female presented for c/o acute on chronic low back pain. Reports pain 'flare' for 10 days. Says she has had pain for 8 years, woke up one day with pain. Not taking anything for symptoms. Says nothing helps except a steroid shot. Endorses pain radiating into both hips and legs. Denies numbness, tingling, weakness of the lower extremities, or change in gait, saddle paresthesia or loss of bowel or bladder. Denies known injury. States she is scheduled with specialist, has 3 appointments. Related Data Allergies Allergy/AdvReac Type Severity Reaction Status Date / Time No Known Allergies Allergy Verified 05/16/24 16:05 Review of Systems Review of Systems: CONSTITUTIONAL: Denies body aches, fever, chills EYES: Denies visual changes CARDIOVASCULAR: Denies chest pain, palpitations, or edema. RESPIRATORY: Denies cough or dyspnea. GASTROINTESTINAL: Denies abdominal pain, nausea, vomiting, or diarrhea. SKIN: Denies rash, itching, or wounds. MUSCULOSKELETAL: reports back pain NEUROLOGIC: Denies headache, numbness, tingling, or weakness. All systems reviewed & are unremarkable except as noted in HPI and below PMFSH Past Medical History Medical History Anxiety Social History Social History Smoking packs per day: 1 Smoking cigarettes per day: 20.0 Smoking status: Current every day smoker Substance use type: marijuana Comments At time of signature, I have reviewed and agree with nursing past medical, surgical, social and family history unless otherwise noted. Please see nursing chart for further information. There is no relevant family history pertinent to the presenting complaint Exam Narrative: GENERAL: Well-appearing CHEST: Speaks in full sentences. No respiratory distress. HEART: Regular rate and rhythm. Normal and equal peripheral pulses. MUSC: Mid low back and paraspinal tenderness with palpation; BLEs with normal strength and sensation, normal range of motion, endorses pain with movement. No open wounds, or obvious deformity; pulse palpable and equal bilaterally, skin warm, dry, pink. Capillary refill less than 3 seconds. Gait steady. SKIN: Warm, dry, no rash. NEURO: Alert and oriented x3. Course Course Emergency Course: Patient is aware of diagnosis, understands and agrees to treatment plan. Anticipatory guidance given. Patient agrees to follow-up as directed and is aware of reasons to seek care at the emergency department. Portions of this record may have been created with voice recognition software Level of Care: Express Care Visit Vital Signs Vital signs: Vital Signs Temperature 99.3 F 05/16/24 16:11 Pulse Rate 88 05/16/24 16:11 Respiratory Rate 16 05/16/24 16:11 Blood Pressure 149/88 H 05/16/24 16:11 Pulse Oximetry 100 05/16/24 16:11 Oxygen Delivery Room Air 05/16/24 16:11 Temperature 99.3 F 05/16/24 16:11 Pulse Rate 88 05/16/24 16:11 Respiratory Rate 16 05/16/24 16:11 Blood Pressure 149/88 H 05/16/24 16:11 Pulse Oximetry 100 05/16/24 16:11 Oxygen Delivery Room Air 05/16/24 16:11 Reviewed MDM - Back Pain/Injury MDM Narrative Medical decision making narrative: Pt requesting steroid shot, advised Rx medrol pack and cyclobenzaprine. She says she is scheduled with a specialist. Advised supportive measures and s/s to go to the ER. Pt is stable and appropriate for outpt treatment and follow up with pcp. Differential Diagnosis Differential diagnosis: Likely lumbar radiculopathy, sciatica, strain of lumbar region, renal colic, pyelonephritis and discitis Discharge Plan Discharge Clinical Impression: Low back pain Pat
== END 2024-05-16 16:37 | disposition home or self-care (01) ==
PROVIDERS: Emergency Provider Nurse Practitioner Family
DX: M54.50 Low back pain, unspecified (principal); F17.210 Nicotine dependence, cigarettes, uncomplicated; F12.90 Cannabis use, unspecified, uncomplicated
CPT/HCPCS: 99213; G0463

== ENCOUNTER 2025-07-07 10:35 | Emergency (ER) | payer MEDICAID, SELFPAY ==
--- NOTE | 2025-07-07 10:36 | ED.URI ---
HPI - URI/Sore Throat General Chief Complaint: Upper Respiratory Infection Stated Complaint: Cough/Runny Nose Time Seen by Provider: 07/07/25 10:35 Source: patient Mode of arrival: ambulatory Limitations: no limitations History of Present Illness HPI Narrative: Lori is a 24-year-old female patient presenting to the clinic today with complaints of cough and runny nose/nasal congestion times 10 days. Nasal drainage is clear. She denies any fevers, chills, body aches. Denies any chest pain or shortness of breath. Have not taken anything for her symptoms. Related Data Home Medications ?Medication ?Instructions ?Recorded ?Confirmed ?Last Taken ?Type pantoprazole 40 mg tablet,delayed mg PO 07/07/25 Unknown History release Allergies Allergy/AdvReac Type Severity Reaction Status Date / Time No Known Allergies Allergy Verified 07/07/25 10:37 Review of Systems Review of Systems: Pertinent positives per HPI. Patient denies any fever, chills, rash, headache, visual changes, dizziness, shortness of breath, chest pain, palpitations, nausea, vomiting, diarrhea, constipation, abdominal pain, or any urinary issues. FOR[facility]LY [facility], [facility] Past Medical History Medical History Anxiety Social History Social History Smoking packs per day: 1 Smoking cigarettes per day: 20.0 Smoking status: Current every day smoker Substance use type: marijuana Comments At the time of my signature, I reviewed and agree with the nursing past medical, surgical, social, and family history. There is no relevant family history pertinent to the patient complaint. Exam Narrative: General: Well-developed, obese, in no apparent distress Head: Normocephalic, atraumatic Eyes: Pupils equally round and reactive to light bilaterally, EOM intact, sclera and conjunctive clear, no discharge, lids normal Ears: TMs intact and clear, ear canals clear, no drainage, grossly hearing normal. Nose: Nares patent, clear nasal discharge, no inflammation, no sinus tenderness. Mouth: Oral pharynx without lesions or masses, good dentition, MMM. Neck: Supple, trachea midline, no enlargement of anterior or posterior cervical nodes, no thyroid masses or goiter palpable. Cardio: Regular rate and rhythm, s1 and s2 normal, no murmur appreciated. Resp: Clear to auscultation bilaterally, no rhonchi, rales, wheezing or rubs Course Course Emergency Course: Portions of this record may have been created with voice recognition software. Level of Care: Express Care Visit Vital Signs Vital signs: Vital Signs Temperature 36.6 C 07/07/25 10:43 Pulse Rate 90 07/07/25 10:43 Respiratory Rate 16 07/07/25 10:43 Blood Pressure 181/80 H 07/07/25 10:43 Pulse Oximetry 100 07/07/25 10:43 Oxygen Delivery Room Air 07/07/25 10:43 Temperature 36.6 C 07/07/25 10:43 Pulse Rate 90 07/07/25 10:43 Respiratory Rate 16 07/07/25 10:43 Blood Pressure 181/80 H 07/07/25 10:43 Pulse Oximetry 100 07/07/25 10:43 Oxygen Delivery Room Air 07/07/25 10:43 Vital signs reviewed MDM - URI/Sore Throat MDM Narrative Medical decision making narrative: At the time of visit patient is resting comfortably on the exam table. Patient appears to be nontoxic. Complaints of cough and runny nose/nasal congestion times 10 days. Nasal drainage is clear. She denies any fevers, chills, body aches. Denies any chest pain or shortness of breath. Have not taken anything for her symptoms. On exam patient has clear nasal drainage with moderate nasal congestion of the turbinates. Lung sounds are clear. No sign of bacterial infection. Plan: I suspect patient has URI. Prescription for Medrol Dosepak was sent to the pharmacy to help alleviate congestion. Supportive measures were discussed with the patient and they voiced understanding discharge instructions and agrees to treatment plan. Return precautions reviewed Differential Diagnosis Differential diagnosis: Likely upper respiratory infection, otitis media, sinusitis, viral infection, bronchitis, influenza, pharyngitis and other (COVID) Discharge Plan Discharge Clinical Impression: Upper respiratory infection Qualifiers: URI type: unspecified URI Qualified Code(s): J06.9 - Acute upper respiratory infection, unspecified Patient Disposition: Home Condition: Stable Instructions: Antibiotic Form, Cold Symptoms (ED) Additional Instructions: Take prescription medications only as prescribed-Medrol Dosepak Increase fluids and stay well hydrated May take Tylenol or motrin as directed on bottle for pain/fever May use Flonase 1 spray in each nare daily May take OTC antihistamines such as Zyrtec or Claritin daily as directed on bottle May apply Vicks vapor rub to chest to open sinuses Sinus rinses for congestion Cepacol spray, cough drops, throat lozenges, warm tea with honey/lemon, gargle salt water to soothe throat BRAT diet for diarrhea Clear liquids x 24 hours then advance as tolerated for nausea/vomiting Go to the ED if you develop a worsening in your condition- high fever not controlled by Tylenol or Motrin, dehydration, weakness, lethargy, shortness of breath, or chest pain. Follow up with your PCP in 3-5 days if symptoms persist. Patient Language: Hungarian Prescriptions: New methylprednisolone [Medrol (Stef)] 4 mg tablets,dose pack See Rx Instructions PO .COMPLEX Qty: 21 0RF Rx Instructions: orally per package directions No Action pantoprazole 40 mg tablet,delayed release (DR/EC) PO Follow-up/Referrals: UNKNOWN,DOCTOR [Non-Staff] Time of Disposition: 10:49 Quality NIHSS Nursing Documentation ED NIHSS nursing documentation: reviewed/agree
--- OUTSIDE RECORDS SUMMARY | 2025-07-07 10:37 | XMS_ITS | Clinical Summary ---
Author Organization [facility] [place] Address [address] [place] [address] Care Team Providers Care Diagnostics Tech Name Role Phone Ev Spears Kev MONZON-CRYPTOGRAPHIC MACHINE OPERATOR Primary Care Prov ider Source Comments [facility] [place],non-owned Affiliates and Associated Physician Practices is amultiple site organization consisting of ambulatory clinics and hospital sitesin [place], [place], [place]. This disclosure is being madepursuant to the Care Everywhere program and may not contain all information available regarding this patient. Last updated 18.[facility] [place] Allergies No known active allergies Medications * Be aware that medications may not be up to date on this document. Alwaysverify current medications with the patient. amoxicillin (Amoxil) 500 MG capsule Take 1 (one) capsule by mouth 12/16/2023 Active vitamin D, ergocalciferol, (Drisdol) 1.25 MG (61833 UT) capsule TAKE 1 CAPSULE BY MOUTH ONE TIME PER WEEK 12/01/2023 Active phentermine (Adipex-P) 37.5 MG tablet Take 1 (one) tablet by mouth once daily 12/21/2023 Active topiramate (Topamax) 50 MG tablet 02/03/2024 Active cyclobenzaprine (Flexeril) 10 MG tablet Take 1 (one) tablet by mouth 3 times daily as needed for Muscle Spasms 05/16/2024 Active methylphenidate (Ritalin) 20 MG tablet Take 1 (one) tablet by mouth once daily 07/29/2024 Active doxycycline monohydrate 100 MG capsule Take 1 (one) capsule by mouth 2 times daily 05/08/2024 Active amoxicillin (Amoxil) 875 MG tablet Take 1 (one) tablet by mouth 2 times daily 08/31/2024 Active pantoprazole EC (Protonix) 40 MG tablet Take 1 (one) tablet by mouth once daily 06/05/2025 Active ketorolac (Toradol) 10 MG tablet Take 1 (one) tablet by mouth every 6 hours as needed for Pain 02/06/2025 Active amphetamine-dext roamphetamine XR 24hr (Adderall XR) 30 MG capsule Take 1 (one) capsule by mouth every morning 08/26/2024 Active cyclobenzaprine (Flexeril) 5 MG tablet Take 1 (one) tablet by mouth 2 times daily 02/06/2025 Active phentermine (Adipex-P) 37.5 MG tablet Take 1 (one) tablet by mouth once daily 12/21/2023 Active topiramate (Topamax) 50 MG tablet Take 1 (one) tablet by mouth once daily 12/21/2023 Active Active Problems Problem Noted Date Diagnosed Date Vitamin D deficiency 12/01/2023 Spinal stenosis of lumbar region 10/22/2023 Overview (06/26/2025): Note: moderate to severe Obesity 10/22/2023 Herniated lumbar intervertebral disc 10/22/2023 Atopic dermatitis 12/11/2020 Overview (06/26/2025): Note: Unchanged Tobacco dependence due to cigarettes 03/13/2020 Overview (06/26/2025): Note: Unchanged - 1/2 PPD 2016-CURRENT Moderate episode of recurrent major depressive d isorder 03/13/2020 Overview (06/26/2025): Note: Unchanged S/P dilation and curettage 02/04/2019 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 10/26/2018 Primary focal hyperhidrosis of groin 10/26/2018 Multiple benign nevi 10/26/2018 Encounters Date Type Department Care Team Description 06/26/2025 Orders Only [facility] - [facility] [address] [facility] [place] [address] Khoi Moreno MD Lumbar pain 06/21/2025 Travel from Last 3 Months Immunizations Immunization Administration Dates Next Due DTaP VACCINE IM (6wk-6yrs) 06/25/2004,,02/11/1999,1998,09/17 HEP B VACCINE, ADULT 3 DOSE 06/25/2004, 0,10/10/1999,02/11/1999 HIB-PRP-OMP 3 DOSE 11/28/1999,02/11/1999, 999,1998 MMR 06/25/2004,08/14/1999 POLIO IPV 06/25/2004, 0,08/14/1999,1998,09/17 TDAP (7yrs+) 02/02/2020,06/24/2013 VARICELLA 08/14/1999 Family History Medical History Relation Name Comments Cancer - Other Paternal Grandfather Relation Name Status Comments Paternal Grandfather pancrea tic cancer Social History Tobacco Use Types Packs/Day Years Used Date Smoking Tobacco: Every Day Cigarettes 0.3 4 Smokeless Tobacco: Never Alcohol Use Standard Drinks/Week Comments No 0 (1 standard drink = 0.6 oz pur e alcohol) PHQ-2 Answer Date Recorded Patient Health Questionnaire-2 Score 2 11/26/2023 Comments Unknown Sex and Gender Information Value Date Recorded Sex Assigned at Not on file 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 Gender Identity Not on file Sexual Orientation Not on file Last Filed Vital Signs Vital Sign Reading Time Taken Comments Blood Pressure 130/80 02/15/2019 1:41 PM CDT Pulse 92 02/04/2019 3:09 PM CDT Temperature 36.9 C (98.4 F) 02/04/2019 2:34 PM CDT Respiratory Rate 20 02/04/2019 3:09 PM CDT Oxygen Saturation 97% 02/04/2019 3:09 PM CDT Inhaled Oxygen Concentration - - Weight 89.8 kg (198 lb) 02/15/2019 1:41 PM CDT Height 167.6 cm (5' 6) 02/15/2019 1:41 PM CDT Body Mass Index 31.96 02/15/2019 1:41 PM CDT Plan of Treatment Upcoming Encounters Date Type Department Care Team (Late st Contact Info) Description 07/13/2025 12:00 PM CDT Office Visit [facility] - [facility] [address] [place] [address] Khoi Moreno MD [facility] [facility] [place] [address] Health Maintenance Due Date Last Done Comments HIV SCREENING 2013 HPV VACCINE (1 - 3-dose series) 2013 HEPATITIS C SCREENING 08/08/2016 PNEUMOCOCCAL VACCINE (1 of 2 - PCV) 2017 PAP SMEAR 2019 COVID-19 VACCINE ( - ) 07/17/2024 DEPRESSION SCREENING 11/16/2024 11/26/2023 INFLUENZA VACCINE (#1) 2025 DTAP/TDAP/TD VACCINES (8 - Td or Tdap) 02/01/2030 02/02/2020, 06/24/2013, 06/25/2004, Additional history exists ZOSTER VACCINE (1 of 2) 2048 HIB VACCINE Completed 11/28/1999, 01/15, 1998, Additional history exists HEPATITIS B VACCINE Completed 06/25/2004, 11/28/1999, 10/10/1999, Additional history exists MENINGOCOCCAL (Group B) VACCINE SHARED DECISION-MAKING Aged Out No longer eligible based on patient's age to complete this topic MENINGOCOCCAL GROUPS A/C/Y/W VACCINE Aged Out No longer eligible based on patient's age to complete this topic Insurance [facility] * Guarantor: MISHELLORI Account Type Relation to Patient Date of Phone Billing Address Personal/Family [address] [place] [id number] * Guarantor: LORI FLORENTINO Account Type Relation to Patient Date of Phone Billing Address Personal/Family [address] [place] [address] * Guarantor: MISHELFEBRUARY Account Type Relation to Patient Date of Phone Billing Address Personal/Family [address] [place] [address] * Guarantor: MISHELFEBRUARY Account Type Relation to Patient Date of Phone Billing Address Personal/Family [address] [place] [address] * Guarantor: MISHELFEBRUARY Account Type Relation to Patient Date of Phone Billing Address Personal/Family [address] [place] [phone] * Guarantor: LORI FLORENTINO Account Type Relation to Patient Date of Phone Billing Address Personal/Family [address] [place] [address] * Guarantor: LORI FLORENTINO Account Type Relation to Patient Date of Phone Billing Address Personal/Family [address] [place] [address] Care Teams Diagnostics Tech Relationship Specialty Start Date End Date Ev Spears APRN-DHARMESH [address] [place] [phone] PCP - General Nurse Practitioner Family 11/26/23
[2025-07-07 10:43] VITALS: BP 181/80; PULSE 90; RESP 16; TEMP 36.6; O2SAT 100
== END 2025-07-07 10:58 | disposition home or self-care (01) ==
PROVIDERS: Emergency Provider Nurse Practitioner Family
DX: J06.9 Acute upper respiratory infection, unspecified (principal); F17.210 Nicotine dependence, cigarettes, uncomplicated
CPT/HCPCS: 99213; G0463

== ENCOUNTER 2025-10-19 09:23 | Outpatient (CLI) | payer OTHER, SELFPAY ==
--- NOTE | 2025-10-19 09:30 | NEURO_ITS ---
Clinical note: The patient is 25-year-old with the complaints of numbness in both lower limbs and lower back pain. No history of diabetes mellitus or major trauma reported. A brief neurological examination did not reveal evidence of focal muscle weakness or atrophy or fasciculations. The results of the EMG nerve study are given below. Summary of findings: 1. Left and right peroneal motor distal latencies, amplitudes and conduction velocities were within normal limits. 2. Tibial motor distal latencies and amplitude and conduction velocity within normal limits. 3. Left and right sural and medial plantar sensory distal latencies and amplitudes were within acceptable normal limits. 4. Left and right H reflex latencies were within normal limits however amplitudes are moderately decreased. 5. EMG examination performed using a monopolar needle electrode. Various muscles in L3-S1 distribution were examined in both lower limbs and related paraspinal muscles. No denervation changes were seen. Motor unit amplitude, duration and recruitment pattern were within normal limits. Impression: EMG and nerve conduction study of both lower limbs are considered within acceptable normal limits. Overall there is no supportive evidence for peripheral neuropathy or L3-S1 radiculopathy. However, H reflex latencies were moderately decreased. Since the peripheral nerve conduction studies were within normal limits it may raise possibility of mild chronic S1 radiculopathy and hence clinical and if necessary radiographic correlation may be helpful. Lupe La MD, FAAN, FAANEM Neurology and electrodiagnostic Medicine Nerve Conduction Studies Motor Nerve Results ? Latency Amplitude F-Lat Segment Distance CV Comment Site (ms) (mV) (ms) (cm) (m/s) Left Peroneal (EDB) Motor Ankle 3.8 7.0 Bel Fib Head 9.7 8.3 Bel Fib Head-Ankle 310 53 Pop Fossa 11.0 8.5 Pop Fossa-Bel Fib Head 75 58 Right Peroneal (EDB) Motor Ankle 3.5 7.9 Bel Fib Head 9.7 7.8 Bel Fib Head-Ankle 290 47 Pop Fossa 11.0 7.7 Pop Fossa-Bel Fib Head 85 65 Left Tibial (AHB) Motor Ankle 4.4 5.7 Knee 12.4 5.6 Knee-Ankle 400 50 Right Tibial (AHB) Motor Ankle 4.7 8.5 Knee 13.1 7.4 Knee-Ankle 380 45 Sensory Nerve Results ? Latency (Peak) Amplitude (P-P) Segment Distance CV Comment Site (ms) (?V) (cm) (m/s) Left Medial Plantar (Ortho) Sensory Great Toe-Med Mall 3.9 19 Great Toe-Med Mall 110 28 Right Medial Plantar (Ortho) Sensory Great Toe-Med Mall 3.1 21 Great Toe-Med Mall 100 32 Left Sural Sensory Calf-Lat Mall 3.4 30 Calf-Lat Mall 120 35 Right Sural Sensory Calf-Lat Mall 3.5 19 Calf-Lat Mall 120 34 H-Reflex Results ? M-Lat H Lat H Peak-Peak Amp M Peak-Peak Amp H-M Lat Site (ms) (ms) mV mV (ms) Left Tibial H-Reflex Pop Fossa - 28.8 1.95 - - Right Tibial H-Reflex Pop Fossa - 28.0 1.45 - - Electromyography ?Side Muscle Nerve Ins Act Fibs Psw Amp Dur Recrt Comment Right BicepsFemS Sciatic Nml Nml Nml Nml Nml Nml Right Semimembranosus Sciatic Nml Nml Nml Nml Nml Nml Right AntTibialis Dp Br Fibular Nml Nml Nml Nml Nml Nml Right Gastroc Tibial Nml Nml Nml Nml Nml Nml Right VastusMed Femoral Nml Nml Nml Nml Nml Nml Right RectFemoris Femoral Nml Nml Nml Nml Nml Nml Right GluteusMax InfGluteal Nml Nml Nml Nml Nml Nml Right TensorFascLat SupGluteal Nml Nml Nml Nml Nml Nml Left BicepsFemS Sciatic Nml Nml Nml Nml Nml Nml Left Semimembranosus Sciatic Nml Nml Nml Nml Nml Nml Left AntTibialis Dp Br Fibular Nml Nml Nml Nml Nml Nml Left Gastroc Tibial Nml Nml Nml Nml Nml Nml Left VastusMed Femoral Nml Nml Nml Nml Nml Nml Left RectFemoris Femoral Nml Nml Nml Nml Nml Nml Left GluteusMax InfGluteal Nml Nml Nml Nml Nml Nml Left TensorFascLat SupGluteal Nml Nml Nml Nml Nml Nml Left L4 Parasp Rami Nml Nml Nml Nml Nml Nml Left L5 Parasp Rami Nml Nml Nml Nml Nml Nml Right L4 Parasp Rami Nml Nml Nml Nml Nml Nml Right L5 Parasp Rami Nml Nml Nml Nml Nml Nml
--- OUTSIDE RECORDS SUMMARY | 2025-10-19 10:11 | XMS_ITS | Clinical Summary ---
Author Organization [facility] Address [address] [place] [address] Care Team Providers Care Production Metal Sprayer Name Role Phone Yasmin Olvera PA-C Primary Care Provider [phone] Source Comments [facility],non-owned Affiliates and Associated Physician Practices is amultiple site organization consisting of ambulatory clinics and hospital sitesin [place], [place] and [place]. This disclosure is being madepursuant to the Care Everywhere program and may not contain all information available regarding this patient. Last updated 18.[facility] Allergies No known active allergies Medications * Be aware that medications may not be up to date on this document. Alwaysverify current medications with the patient. methylPREDNISol one (Medrol Dosepak) 4 MG tablet Take by mouth as directed <!--EPICS-->F ollow package insert dosing for six day supply.<!--EP ICE--> 21 tablet 07/13/2025 Active cyclobenzaprine (Flexeril) 5 MG tablet Take 1 (one) tablet by mouth 3 times daily as needed (Muscle spasms) 30 tablet 07/13/2025 Active NIFEdipine CR 24hr (Adalat CC) 30 MG tablet Take 1 (one) tablet by mouth once daily 07/20/2025 Active gabapentin (Neurontin) 100 MG capsule Take 1 (one) capsule by mouth 3 times daily 07/20/2025 Active Active Problems Problem Noted Date Diagnosed Date Alopecia 07/12/2025 Vitamin D deficiency 12/01/2023 Spinal stenosis of [...] Encounters Date Type Department Care Team Description 07/27/2025 2:53 PM CDT - 07/27/2025 11:59 PM CDT Hospital Encounter [facility] [address] [place] [address] Khoi Moreno MD Discharge Disposition: Home or Self Care 07/27/2025 2:53 PM CDT - 07/27/2025 11:59 PM CDT Hospital Encounter [facility] [address] [place] [address] Khoi Moreno MD Discharge Disposition: Home or Self Care 07/27/2025 Travel from Last 3 Months Immunizations Immunization [...] Answer Date Recorded Patient Health Questionnaire-2 Score 3 08/07/2025 Comments Unknown Sex and Gender Information Value Date Recorded Sex Assigned at Not on file Legal Sex Female 3:48 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 Gender Identity Not on file Sexual Orientation [...] 02/15/2019 1:41 PM CDT Plan of Treatment Health Maintenance Due Date Last Done Comments HIV SCREENING 2013 HEPATITIS C SCREENING 08/08/2016 PNEUMOCOCCAL VACCINE (1 of 2 - PCV) 2017 PAP SMEAR 2019 COVID-19 VACCINE (1 - 2024- season) 2025 INFLUENZA VACCINE (#1) 2025 HPV VACCINE (1 - 3-dose SCDM series) 2025 DTAP/TDAP/TD VACCINES (8 - Td or Tdap) 02/01/2030 02/02/2020, 06/24/2013, 06/25/2004, Additional history exists ZOSTER VACCINE (1 of 2) 2048 HIB VACCINE Completed 11/28/1999, 01/15, 1998, Additional history exists HEPATITIS B VACCINE Completed 06/25/2004, 11/28/1999, 10/10/1999, Additional history exists DEPRESSION SCREENING Completed 07/13/2025, 11/26/19 MENINGOCOCCAL (Group B) VACCINE SHARED DECISION-MAKING Aged Out No longer eligible based on patient's age to complete this topic MENINGOCOCCAL GROUPS A/C/Y/W VACCINE Aged Out No longer eligible based on patient's age to complete this topic Procedures Procedure Name Priority Date/Time Associated Diagnosis Comments MRI CERVICAL SPINE WO CONTRAST Routine 07/27/2025 5:10 PM CDT Myelopathy (HCC) MRI LUMBAR SPINE WO CONTRAST Routine 07/27/2025 5:10 PM CDT Lumbar pain from Last 3 Months Results * MRI Cervical Spine Wo Contrast (07/27/2025 5:10 PM CDT) Anatomical Region Laterality Modality Pelvis Magnetic Resonan ce 08/01/2025 4:49 PM CDT Impressions 08/01/2025 4:51 PM CDT IMPRESSION: 1. Normal MRI of the cervical spine. > Interpreting Provider: Ileana Fabian MD on 08/01/2025 4:51 PM Narrative 08/01/2025 4:51 PM CDT PROCEDURE: MRI CERVICAL SPINE WO CONTRAST, DATE/TIME OF EXAM: 07/27/2025 5:11 PM, LOCATION [facility] INDICATION: G95.9: Myelopathy (HCC) ADDITIONAL CLINICAL INFORMATION: Ordering Provider Reason For Exam: cervical myelopathy Technologist Note: Additional: EXAMINATION: Magnetic resonance imaging (MRI) of the cervical spine without contrast TECHNIQUE: MRI of the cervical spine was performed without intravenous contrast according to standard protocol. FINDINGS: The alignment is normal. Vertebral bodies are normal in height without evidence of compression fractures. The visible bone marrow is normal. The craniocervical junction is normal. The spinal cord appears normal. The intervertebral discs are normal in height. No soft tissue abnormality is identified. Normal flow voids are identified in the vertebral arteries. C2-3: There is no disc bulge. There is no central canal stenosis. There is no facet osteoarthritis. There is no uncovertebral joint osteoarthritis. There is no neural foraminal stenosis. C3-4: There is no disc bulge. There is no central canal stenosis. There is no facet osteoarthritis. There is no uncovertebral joint osteoarthritis. There is no neural foraminal stenosis. C4-5: There is no disc bulge. There is no central canal stenosis. There is no facet osteoarthritis. There is no uncovertebral joint osteoarthritis. There is no neural foraminal stenosis. C5-6: There is no disc bulge. There is no central canal stenosis. There is no facet osteoarthritis. There is no uncovertebral joint osteoarthritis. There is no neural foraminal stenosis. C6-7: There is no disc bulge. There is no central canal stenosis. There is no facet osteoarthritis. There is no uncovertebral joint osteoarthritis. There is no neural foraminal stenosis. C7-T1: There is no disc bulge. There is no central canal stenosis. There is no facet osteoarthritis. There is no uncovertebral joint osteoarthritis. There is no neural foraminal stenosis. Procedure Note Ileana Fabian MD - 08/01/2025 PROCEDURE: MRI CERVICAL SPINE WO CONTRAST, DATE/TIME OF EXAM:07/27/2025 5:11 PM, LOCATION [facility] INDICATION: G95.9: Myelopathy (HCC) ADDITIONAL CLINICAL INFORMATION: Ordering Provider Reason For Exam: cervical myelopathy Technologist Note: Additional: EXAMINATION: Magnetic resonance imaging (MRI) of the cervical spinewithout contrast TECHNIQUE: MRI of the cervical spine was performed without intravenous contrast according to standard protocol. FINDINGS: The alignment is normal. Vertebral bodies are normal in height without evidence of compression fractures. The visible bone marrow is normal.The craniocervical junction is normal. The spinal cord appears normal. The intervertebral discs are normal in height. No soft tissue abnormality is identified. Normal flow voids areidentified in the vertebral arteries. C2-3: There is no disc bulge. There is no central canal stenosis. Thereis no facet osteoarthritis. There is no uncovertebral joint osteoarthritis. There is no neural foraminal stenosis. C3-4: There is no disc bulge. There is no central canal stenosis. Thereis no facet osteoarthritis. There is no uncovertebral joint osteoarthritis. There is no neural foraminal stenosis. C4-5: There is no disc bulge. There is no central canal stenosis. Thereis no facet osteoarthritis. There is no uncovertebral joint osteoarthritis. There is no neural foraminal stenosis. C5-6: There is no disc bulge. There is no central canal stenosis. Thereis no facet osteoarthritis. There is no uncovertebral joint osteoarthritis. There is no neural foraminal stenosis. C6-7: There is no disc bulge. There is no central canal stenosis. Thereis no facet osteoarthritis. There is no uncovertebral joint osteoarthritis. There is no neural foraminal stenosis. C7-T1: There is no disc bulge. There is no central canal stenosis. Thereis no facet osteoarthritis. There is no uncovertebral joint osteoarthritis. There is no neural foraminal stenosis. IMPRESSION: 1. Normal MRI of the cervical spine. > Interpreting Provider: Ileana Fabian MD on 08/01/2025 4:51 PM us Khoi Moreno MD MR ORDERABLES Final Result * MRI Lumbar Spine Wo Contrast (07/27/2025 5:10 PM CDT) Anatomical Region Laterality Modality Spine Magnetic Resonan ce 08/01/2025 4:51 PM CDT Impressions 08/01/2025 4:56 PM CDT IMPRESSION: 1. Mild facet osteoarthritis at L3-L4 and mild degenerative disc disease at L4-L5 and L5-S1 as above. No central canal or neuroforamina stenosis in the lumbar spine. > Interpreting Provider: Ileana Fabian MD on 08/01/2025 4:56 PM Narrative 08/01/2025 4:56 PM CDT PROCEDURE: MRI LUMBAR SPINE WO CONTRAST, DATE/TIME OF EXAM: 07/27/2025 5:10 PM, LOCATION [facility] INDICATION: M54.50: Lumbar pain ADDITIONAL CLINICAL INFORMATION: Ordering Provider Reason For Exam: lumbar radiculopathy/neurogenic claudication Technologist Note: Additional: EXAMINATION: Magnetic resonance imaging (MRI) of the lumbar spine without contrast TECHNIQUE: MRI of the lumbar spine was performed without intravenous contrast according to standard protocol. FINDINGS: S1 is partially lumbarized. For the purpose of these report, the L5-S1 disc space is at images 38 of series 100. The alignment is normal. Vertebral bodies are normal in height without evidence of acute fracture. Other than moderate degenerative endplate changes at L5-S1, the bone marrow signal is normal. The conus medullaris terminates at the level of L1 and the distal spinal cord signal intensity is normal. Moderate disc space narrowing and desiccation at L5-S1. No soft tissue abnormality is identified. L1-L2: There is no disc bulge. There is no central canal stenosis. There is no facet osteoarthritis. There is no neural foraminal stenosis. L2-L3: There is no disc bulge. There is no central canal stenosis. There is no facet osteoarthritis. There is no neural foraminal stenosis. L3-L4: There is no disc bulge. There is no central canal stenosis. There is mild bilateral facet osteoarthritis. There is no neural foraminal stenosis. L4-L5: There is a tiny central disc protrusion. There is no central canal stenosis. There is no facet osteoarthritis. There is no neural foraminal stenosis. L5-S1: There is mild disc bulge and a small right paracentral disc protrusion. There is no central canal stenosis. There is no facet osteoarthritis. There is no neural foraminal stenosis. Procedure Note Ileana Fabian MD - 08/01/2025 PROCEDURE: MRI LUMBAR SPINE WO CONTRAST, DATE/TIME OF EXAM: 07/27/2025 5:10 PM, LOCATION [facility] INDICATION: M54.50: Lumbar pain ADDITIONAL CLINICAL INFORMATION: Ordering Provider Reason For Exam: lumbar radiculopathy/neurogenic claudication Technologist Note: Additional: EXAMINATION: Magnetic resonance imaging (MRI) of the lumbar spinewithout contrast TECHNIQUE: MRI of the lumbar spine was performed without intravenous contrast according to standard protocol. FINDINGS: S1 is partially lumbarized. For the purpose of these report, the L5-S1disc space is at images 38 of series 100. The alignment is normal. Vertebral bodies are normal in height without evidence of acute fracture. Other than moderate degenerative endplate changes at L5-S1, the bone marrow signal is normal. The conusmedullaris terminates at the level of L1 and the distal spinal cord signalintensity is normal. Moderate disc space narrowing and desiccation at L5-S1. Nosoft tissue abnormality is identified. L1-L2: There is no disc bulge. There is no central canal stenosis. Thereis no facet osteoarthritis. There is no neural foraminal stenosis. L2-L3: There is no disc bulge. There is no central canal stenosis. Thereis no facet osteoarthritis. There is no neural foraminal stenosis. L3-L4: There is no disc bulge. There is no central canal stenosis. Thereis mild bilateral facet osteoarthritis. There is no neural foraminalstenosis. L4-L5: There is a tiny central disc protrusion. There is no centralcanal stenosis. There is no facet osteoarthritis. There is no neural foraminal stenosis. L5-S1: There is mild disc bulge and a small right paracentral disc protrusion. There is no central canal stenosis. There is no facet osteoarthritis. There is no neural foraminal stenosis. IMPRESSION: 1. Mild facet osteoarthritis at L3-L4 and mild degenerative disc diseaseat L4-L5 and L5-S1 as above. No central canal or neuroforamina stenosis inthe lumbar spine. > Interpreting Provider: Ileana Fabian MD on 08/01/2025 4:56 PM Khoi Moreno MD MR ORDERABLES Final Result from Last 3 Months Insurance [facility] MEDICAID - [place] * Guarantor: LORI ABRAMS Account Type Relation to Patient Date of Phone Billing Address Personal/Family [address] [place] [phone] * Guarantor: MISHELLORI Account Type Relation to Patient Date of Phone Billing Address Personal/Family [address] [place] [address] * Guarantor: MISHELLORI Account Type Relation to Patient Date of Phone Billing Address Personal/Family [address] [place] [address] * Guarantor: LORI ABRAMS Account Type Relation to Patient Date of Phone Billing Address Personal/Family [address] [place] [address] * Guarantor: LORI ABRAMS Account Type Relation to Patient Date of Phone Billing Address Personal/Family [address] [place] [phone] * Guarantor: MISHELLORI Account Type Relation to Patient Date of Phone Billing Address Personal/Family [address] [place] [address] * Guarantor: MISHEL Account Type Relation to Patient Date of Phone Billing Address Personal/Family [address] [place] [address] Care Teams Production Metal Sprayer Relationship Specialty Start Date End Date Yasmin Olvera PA-C [address] [place] [address] [phone] PCP - General Physician Deputy County Attorney 07/13/25
== END 2025-10-19 09:24 | disposition home or self-care (01) ==
LOC: ANHNEURO 09:24
PROVIDERS: Visit Provider Nurse Practitioner Adult Health
DX: R20.2 Paresthesia of skin (principal)
CPT/HCPCS: 95886; 95910